=== PATIENT | male | born 1970 | race Caucasian/White ===

== ENCOUNTER 2020-05-16 14:54 | Outpatient (REF) | payer OTHER, SELFPAY ==
[2020-05-21 03:32] LABS: Patient Race White; SARS-CoV-2 RNA Undetected (Undetected); SARS-CoV-2 Specimen Source Nasal
== END 2020-05-16 15:14 ==
LOC: NCHCN 14:54
PROVIDERS: PCP Family Medicine; Visit Provider Nurse Practitioner Family
DX: Z20.828 Contact with and (suspected) exposure to other viral communicable diseases (principal)
CPT/HCPCS: U0003

== ENCOUNTER 2020-09-12 18:13 | Outpatient (REF) | payer OTHER, SELFPAY ==
[2020-09-12 15:46] LABS: Calculated LDL 168 mg/dL (<100); Cholesterol 247 mg/dL (<200); HDL Cholesterol 68 mg/dL (40-60); Triglyceride 58 mg/dL (<150)
[2020-09-12 16:21] LABS: Hemoglobin A1C 5.9 % (<5.7)
== END 2020-09-12 18:14 | disposition home or self-care (01) ==
LOC: NCHCN 18:13
PROVIDERS: PCP Family Medicine; Visit Provider Family Medicine
DX: Z00.00 Encounter for general adult medical examination without abnormal findings (principal); Z13.220 Encounter for screening for lipoid disorders; Z13.1 Encounter for screening for diabetes mellitus; M10.9 Gout, unspecified
CPT/HCPCS: 80061; 83036; 84550

== ENCOUNTER 2021-03-10 17:09 | Outpatient (REF) | payer OTHER, SELFPAY ==
[2021-03-10 15:14] LABS: Uric Acid 6.4 mg/dL (3.5-7.2)
== END 2021-03-10 17:10 | disposition home or self-care (01) ==
LOC: NCHCN 17:09
PROVIDERS: PCP Family Medicine; Visit Provider Family Medicine
DX: M10.9 Gout, unspecified (principal)
CPT/HCPCS: 84550

== ENCOUNTER 2022-04-16 10:20 | Day surgery (SDC) | payer OTHER, SELFPAY ==
--- NOTE | 2022-04-16 07:38 | W.ANESPRE ---
General Info Date of Service Date Performed: 04/16/22 Height: 5 ft 9 in Weight: 78.131 kg Body Mass Index (BMI): 25.4 Surgical Procedure: Operation Date: 04/16/22 12:35 Proposed Procedure Side Surgeon daniel Munguia MD Meds Allergies and Home Medications Allergies Allergy/AdvReac Type Severity Reaction Status Date / Time No Known Allergies Allergy Verified 04/16/22 10:30 Home Medication Medication Instructions Recorded allopurinol 100 mg tablet 100 mg PO DAILY 03/05/21 ibuprofen 200 mg tablet 200 mg PO Q6H PRN 03/05/21 Current Visit Medications: Current Medications Generic Name Dose Route Start Last Admin Trade Name Freq PRN Reason Stop Dose Admin Ringer's Solution 1,000 mls @ 80 mls/hr 04/16/22 06:00 IV 05/15/22 23:59 INFUSION TEVIN IV Miscellaneous Supplies 1 each 04/16/22 06:00 Iv Access IV 05/15/22 23:59 DIRECTED TEVIN Sodium Chloride 0 ml 04/16/22 06:00 Normal Saline Flush 10 Ml Syr IV 05/15/22 23:59 PRN PRN Sodium Chloride 0 ml 04/16/22 06:00 Normal Saline 10 Ml Vial IJ 05/15/22 23:59 DIRECTED PRN Sterile Water 0 ml 04/16/22 06:00 Water,Injection,Sterile 10 Ml Vial IJ 05/15/22 23:59 DIRECTED PRN PFSH Medical History Medical History Gout Inguinal hernia, left Lateral epicondylitis of left elbow Lesion of skin of face Osteoarthritis Prediabetes Snoring Trochanteric bursitis of left hip Surgical History Surgical History Repair of inguinal hernia (~08/2012) Tobacco Smoking/Tobacco Use Status: Never Alcohol Alcohol Intake: current Alcohol intake frequency: a few times a week Alcohol type: beer Substance Use Substance use: Never Substance use type: does not use Vital Signs and Lab Results Vital Signs Most Recent Vital Signs in EMR: Temp Pulse Resp BP Pulse Ox 36.3 C L 78 16 122/96 H 99 04/16/22 10:32 04/16/22 10:32 04/16/22 10:32 04/16/22 10:32 04/16/22 10:32 Lab Results Blood Type / Crossmatch: No Data to Display Complete Blood Count: No Data to Display Complete Metabolic Panel: No Data to Display Liver Function Panel: No Data to Display Coagulation Panel: No Data to Display Cardiac Panel: No Data to Display Arterial Blood Gas: No Data to Display Venous Blood Gas: No Data to Display Pancreas Panel: No Data to Display Thyroid Panel: No Data to Display Infectious Disease: No Data to Display Blood Cultures: No Data to Display Toxicology Panel: No Data to Display Anesthesia Assessment and Plan Anesthesia History Personal History: No History of Anesthesia Complications Family History: No Family History of Anesthesia Complications Exercise Tolerance Exercise Tolerance: Metabolic Equivalents>4 Cardiac & Pulmonary Exam Cardiac Exam: Normal S1/S2 Heart Sounds Pulmonary Exam: Clear Bilateral Breath Sounds Implantable Cardiac Device Does patient have a Pacemaker or an ICD?: No Airway Exam Known Difficult Airway: No Mallampati Class: 1 Mouth Opening: Normal (> 3cm) Thyromental Distance: Greater than 3 cm Neck Range of Motion: Full ROM Neck Circumference: Normal Teeth Condition: Normal Dentition ASA Classification ASA Score: ASA 2 Emergency Case?: No NPO Status NPO Status: NPO Clears >2 hours, Solids >8 hours Anesthesia Plan Resuscitation Status: Full Code Anesthesia Technique: General Anesthesia Airway Planned: Natural Airway Monitors Used: Standard Monitors Preoperative Comments:: 52 yo male for screening colo. Sig PMHx: preDM (A1c 5.9%), gout, Snoring, never smoker, occ EtOH,
--- NOTE | 2022-04-16 07:55 | HPE_ITS ---
Assessment and Plan Assessment and plan (1) Encounter for colorectal cancer screening: Status: Acute Assessment and plan: The patient is here for Colonoscopy pre-op. He has no family history of colon cancer. He has not had any bowel habit changes. -Discussed colonoscopy bowel prep as well as the procedure. Discussed possible complications of the procedure to include bleeding, pain, perforation, missed small lesion/polyp, sore throat, aspiration and adverse reaction to the medications. Questions were answered to patient?s satisfaction. No guarantees were implied or given.? P// Colonoscopy under sedation History of Present Illness Narrative: 51 y/o male with history of gout and prediabtes presents for his first colonoscopy screening pre-op. He denies a family history of colon cancer. He denies any changes in bowel habits including bloody or black tarry stools, abdominal pain, diarrhea or constipation. He denies constitutional symptoms. Denies use of marijuana or any other recreational or illegal drugs. He denies chest pain, palpitations, dyspnea or dyspnea with exertion. He denies prior history or family history of adverse reactions or complications with a nesthesia. The patient denies any history of stroke, VT, seizures, bleeding or clotting disorders. He denies having any implanted metal in his body. Review of Systems All systems reviewed & are unremarkable except as noted in HPI and below PFSH All Active Problems Encounter for colorectal cancer screening (Acute) Medical History Gout Inguinal hernia, left Lateral epicondylitis of left elbow Lesion of skin of face Osteoarthritis Prediabetes Snoring Trochanteric bursitis of left hip Surgical History Repair of inguinal hernia (~08/2012) Social History Smoking/Tobacco Use Status: Never Smoking risk assessment performed?: Yes Alcohol Intake: current Alcohol Intake frequency: a few times a week Alcohol type: beer Drug use: Never Substance use type: does not use Current gender identity: male Do you feel safe at home: Yes Do you feel safe in your relationship?: Yes Meds Allergies and Home Medications Allergies Allergy/AdvReac Type Severity Reaction Status Date / Time No Known Allergies Allergy Verified 04/16/22 10:30 Home Medications Medication Instructions Recorded Confirmed Type allopurinol 100 mg tablet 100 mg PO DAILY 03/05/21 04/16/22 History ibuprofen 200 mg tablet 200 mg PO Q6H PRN 03/05/21 04/15/22 History Exam Const General: comfortable and no acute distress Orientation: alert and oriented x3 HENMT Head: normocephalic and atraumatic Resp Effort & Inspection: normal respiratory effort Auscultation: clear to auscultation bilaterally Cardio Rate: regular rate Rhythm: regular rhythm
--- NOTE | 2022-04-16 07:57 | W.COLOREPORT ---
Colonoscopy Report Date of procedure: 04/16/22 Pre-op diagnosis general: colon Cancer screening Post-op diagnosis procedure note: same Procedure: Colonoscopy Surgeon: Savana Munguia Anesthesia Type: General:No Airway Estimated blood loss (mL): 0 Pathology: none sent Complications: None Disposition: same day Indications: The patient is here for Colonoscopy pre-op. He has no family history of colon cancer. He has not had any bowel habit changes. -Discussed colonoscopy bowel prep as well as the procedure. Discussed possible complications of the procedure to include bleeding, pain, perforation, missed small lesion/polyp, sore throat, aspiration and adverse reaction to the medications. Questions were answered to patient?s satisfaction. No guarantees were implied or given.? Prep: Miralax/Dulcolax Procedure Start Time: 11:50 Procedure End Time: 12:06 Retraction Time: 6 minutes Findings: Normal colon Procedure Description: After informed consent was obtained the patient was taken to the procedure room and placed in a left decubitous position. Monitors were applied and a time out was done. The patients name, date of , procedure, allergies to medications and metal in their body was reviewed. The patient was then sedated. Once sedated and comfortable a rectal exam was done. External exam was normal. Internal exam revealed a normal sphincter tone and no palpable masses. The prostate felt smooth. The scope was then introduced and retro-flexed. No internal hemorrhoids, polyps or masses were identified on retro-flexion. The scope was then advanced to the cecum without difficulty. The ileocecal vlave and appendiceal orifice were identified. The prep was adequate. The scope was then slowly retracted over 6 minutes back into the rectum. There were no polyps and there was no diverticulosis noted. The scope was removed and the patient was woken up and taken back to Same day surgery in stable condition. The patient tolerated the procedure well and there were no immediate complications. Follow up: The patient should follow up in 10 years unless they develop changes in bowel habits or other new gastrointestinal complaints.
--- NOTE | 2022-04-16 07:58 | W.PM.DSUDISC ---
Discharge Plan Disposition Patient Disposition: HOME Condition: Good Discharge Details Reason For Visit: colonoscopy Attending Provider: Savana Munguia Primary Care Provider: Jeanette Bernard Home Meds and New Rx's Prescriptions: No Action ibuprofen 200 mg tablet 200 mg PO Q6H PRN allopurinol 100 mg tablet 100 mg PO DAILY Discharge Instructions Additional Instructions: Findings: Normal Follow up: 10 years Please call if you develop: fevers >101.5 Nausea or Vomiting Abdominal pain that is not transient Rectal bleeding that is more then a tbsp A hard abdomen and inability to pass gas DAY SURGERY UNIT POST ENDOSCOPY INSTRUCTIONS Instructions for everyone who is given Anesthesia: For your safety, please do the following for the next 24 Hours: a. Do not drive or operate dangerous equipment b. Do not drink alcohol beverages or use any recreational drugs for the first 24 hours or while taking pain medications. The medications in your body may have a reaction that can be dangerous. c. Do not make any important decisions or sign any important papers 1. Generally there are no restrictions on your activity after a day or so has gone by, but you may feel a bit fatigued for a few days. 2. After you arrive home you may have a light meal and return to a normal diet as you can tolerate it without feeling sick to your stomach. 3. After surgery, you may feel pain or discomfort. This should be only transient, but if it persists please contact your doctor. 4. If there are any questions regarding the findings of your procedure, please feel free to contact your doctor. 6. If you are unable to contact your doctor with a problem, contact the hospital at [phone]. 7. Continue all your regular medications unless directed otherwise. I understand the above instructions and have no questions. Signature of Patient or Responsible Adult Escort Date/Time Name of Responsible Adult Escort Signature of Nurse Date/Time Activity:: Activity as Tolerated Diet:: As Tolerated Discharge Orders Discharge Orders: Discharge Order (Routine); Ordered 04/16/22 Ordered By: Savana Munguia DS: Diagnosis Discharge Diagnosis (1) Encounter for colorectal cancer screening: Status: Acute
[2022-04-16 10:32] VITALS: BP 122/96; PULSE 78; RESP 16; TEMP 36.3; O2SAT 99
[2022-04-16] MEDS: Lactated Ringers 1,000 ML 80 ML IV (11:12)
[2022-04-16 11:30] VITALS: BMI 25.4
[2022-04-16 12:09] VITALS: BP 122/79; PULSE 83; RESP 16; TEMP 36.4; O2SAT 100
--- NOTE | 2022-04-16 12:16 | W.ANESPOSTOP ---
Postoperative Evaluation Date, Time and Location Date Performed: 04/16/22 Time Performed: 12:16 Patient Location: Day Surgery Unit Vital Signs Most Recent Imported Vital Signs: Most Recent Vital Signs Temp Pulse Resp BP Pulse Ox 36.4 C L 83 16 122/79 100 04/16/22 12:09 04/16/22 12:09 04/16/22 12:09 04/16/22 12:09 04/16/22 12:09 Pain Score Most Recent Pain Score: Most Recent Pain Score Pain Level 0 04/16/22 12:09 Assessment Mental Status: Awake (Alert & Oriented to Patient Baseline) Airway and Respiratory Function: Patent airway with normal (patient baseline) respiratory exam Cardiovascular Function: Hemodynamically Stable Hydration Status: Adequately Hydrated Nausea & Vomiting: No Nausea or Vomiting Pain: Pt. Denies Any Pain Peripheral Nerve Block: Patient did not receive a nerve block
[2022-04-16 12:38] VITALS: BP 135/94; PULSE 70; RESP 18; TEMP 36.4; O2SAT 100
== END 2022-04-16 12:47 | disposition home or self-care (01) ==
PROVIDERS: PCP Family Medicine; Visit Provider Surgery
PROC: 0DJD8ZZ Inspection of Lower Intestinal Tract, Via Natural or Artificial Opening Endoscopic (ICD-10-PCS; CPT 45378; principal; 2022-04-16 11:45)
DX: Z12.11 Encounter for screening for malignant neoplasm of colon (principal); R73.03 Prediabetes
CPT/HCPCS: 45378

== ENCOUNTER 2022-12-29 00:56 | Outpatient (CLI) | payer OTHER, SELFPAY ==
--- NOTE | 2022-12-29 07:00 | DI.CT_ITS ---
Exam(s) CT ABDOMEN PELVIS W EXAM: CT ABDOMEN PELVIS W CLINICAL HISTORY: pain suprapubic/inguinal region,Neg on exam,r10.32,r39.89. TECHNIQUE: Imaging Protocol: Axial computed tomography images with coronal and sagittal reformatted images were created and reviewed CONTRAST MATERIAL: Intravenous: Omnipaque-350 100cc Oral: YES. ORAL CONTRAST WAS ADMINISTERED FOR BOWEL OPACIFICATION COMPARISON: No exams were available for comparison FINDINGS: VISUALIZED LUNG BASES: No nodules nor pleural effusions evident. ABDOMEN: There is no ascites. LIVER: There are no focal hepatic lesions evident. No dilated intrahepatic ducts. GALLBLADDER/BILIARY: No obvious gallbladder pathology. CBD is not dilated. PANCREAS: No evidence of pancreatic mass nor dilatation of the pancreatic duct. SPLEEN: Spleen is not enlarged. No obvious intrasplenic lesions. Splenic and portal veins are paten t. ADRENALS: There are no significant adrenal masses. KIDNEYS:There is a benign cyst in the lateral cortex of the left kidney measuring 1.3 x 1.2 cm. Does not require further workup. No solid renal nodules. No calculi nor hydronephrosis. ABDOMINAL AORTA: Abdominal aorta is not enlarged. LYMPH NODES:There is no retroperitoneal nor paraaortic adenopathy. ABDOMINAL WALL: No evidence of significant anterior abdominal wall nor inguinal hernia. GI: There is no evidence of bowel obstruction, free air, nor abscess. PELVIS: GI: No evidence of appendicitis.No evidence of sigmoid diverticulitis. LYMPH NODES: There is no intrapelvic nor inguinal adenopathy. REPRODUCTIVE: Prostate size upper normal. Seminal vesicles unremarkable. URINARY BLADDER: There is uniform thickening of the urinary bladder wall. Probably related to chroni c cystitis. The bladder is not distended. There are no bladder diverticuli evident. OSSEOUS: No fractures and no significant osseous lesions. IMPRESSION: 1. There is uniform thickening of the urinary bladder wall, consistent with probable cystitis. There is no evidence of emphysematous cystitis. Prostate size upper normal. RADIATION DOSE DELIVERED: 1,137.61mGy.cm Total DLP DATA REPOSITORY: All CT scans at this facility are submitted to the National Radiology Data Registry (NRDR) Dose Index Registry (DIR) with the [employer] ([employer]). RADIATION OPTIMIZATION: All CT scans at this facility use at least one of these dose optimization te chniques: automated exposure control; mA and/or kV adjustment per patient size (includes targeted exa ms where dose is matched to clinical indication); or iterative reconstruction.
[2022-12-29] MEDS: Barium Sulfate 2% W/V-Berry Smoothie 450 ML BTL PO (07:17)
[2022-12-29 07:31] LABS: CREATININE 1.2 mg/dL (0.70-1.30); Estimated GFR 72.31 (mL/min/1.73m2)
[2022-12-29] MEDS: Normal Saline - Diluent 50 ML VIAL IJ (10:39)
[2022-12-29] MEDS: Omnipaque 350 MG/ML 500 ML BTL-Imaging package 100 ML IJ (10:40)
== END 2022-12-29 01:16 ==
LOC: DI 00:56
PROVIDERS: PCP Family Medicine; Visit Provider Surgery
DX: R10.32 Left lower quadrant pain (principal); R39.89 Other symptoms and signs involving the genitourinary system
CPT/HCPCS: 74177; 82565

== ENCOUNTER 2023-02-10 14:09 | Outpatient (REF) | payer OTHER, SELFPAY ==
[2023-02-10 15:23] LABS: Bilirubin Negative (Negative); Blood Negative (Negative); Clarity Clear (Clear); Glucose Negative (Negative); Ketones Negative (Negative); Leukocyte Esterase Negative (Negative); Nitrite Negative (Negative); Urobilinogen 0.2 mg/dL (Up to 0.2)
== END 2023-02-10 14:10 | disposition home or self-care (01) ==
LOC: LBN 14:09
PROVIDERS: PCP Family Medicine; Visit Provider Surgery
DX: N32.89 Other specified disorders of bladder (principal); R93.89 Abnormal findings on diagnostic imaging of other specified body structures
CPT/HCPCS: 81003

== ENCOUNTER 2023-04-09 20:44 | Outpatient (REF) | payer OTHER, SELFPAY ==
[2023-04-09 18:53] LABS: HCT 46.3 % (40.0-50.0); HGB 15.7 g/dL (13.5-17.5); MCH 30.4 pg (27.0-33.0); MCHC 33.9 % (32.0-36.0); MCV 90 fL (80-95); MPV 10.5 fL (8.0-11.0); Platelet Count 267 10^3/uL (130-400); RBC 5.17 10^6/uL (4.36-5.78); RDW 11.6 % (11.8-14.1); RDW-SD 38.1 fL; WBC 4.67 10^3/uL (4.4-10.8)
[2023-04-09 19:14] LABS: ALT 23 U/L (16-63); AST 17 U/L (15-37); Albumin 4.3 g/dL (3.4-5.0); Alkaline Phosphatase 92 U/L (46-116); Anion Gap 10.1 mmol/L (3-11); BUN 16 mg/dL (7-18); Bilirubin, Total 0.4 mg/dL (0.2-1.0); CO2 28.9 mmol/L (21.0-32.0); CREATININE 1.1 mg/dL (0.70-1.30); Calcium 9.7 mg/dL (8.5-10.1); Chloride 101 mmol/L (98-107); Estimated GFR 79.77 (mL/min/1.73m2); Glucose 91 mg/dL (74-106); Potassium 4.1 mmol/L (3.5-5.1); Sodium 140 mmol/L (136-145); Total Protein 8.1 g/dL (6.4-8.2); Uric Acid 5.6 mg/dL (3.5-7.2)
[2023-04-09 20:07] LABS: Hemoglobin A1C 5.8 % (<5.7)
[2023-04-12 10:37] LABS: HIV-1/2 Ag & Ab Screen Negative (Negative)
[2023-04-12 10:48] LABS: Hepatitis C Ab w Rflx HCV PCR Negative (Negative)
[2023-04-12 11:03] LABS: Varicella IgG Antibody Positive (See Note)
== END 2023-04-09 20:45 | disposition home or self-care (01) ==
LOC: NCHCN 20:44
PROVIDERS: PCP Family Medicine; Visit Provider Family Medicine
DX: Z00.00 Encounter for general adult medical examination without abnormal findings (principal); R53.83 Other fatigue; R73.03 Prediabetes; M10.9 Gout, unspecified; Z01.84 Encounter for antibody response examination; Z11.4 Encounter for screening for human immunodeficiency virus [HIV]; Z11.59 Encounter for screening for other viral diseases
CPT/HCPCS: 80053; 85027; 86787; 86803; 87389; 83036; 84443; 84550

== ENCOUNTER 2025-07-02 18:14 | Outpatient (REF) | payer OTHER, SELFPAY ==
[2025-07-02 19:43] LABS: HCT 44.4 % (40.0-50.0); HGB 14.7 g/dL (13.5-17.5); MCH 29.7 pg (27.0-33.0); MCHC 33.1 % (32.0-36.0); MCV 90 fL (80-95); MPV 10.4 fL (8.0-11.0); Platelet Count 270 10^3/uL (130-400); RBC 4.95 10^6/uL (4.36-5.78); RDW 11.9 % (11.8-14.1); RDW-SD 38.7 fL; WBC 5.43 10^3/uL (4.4-10.8)
[2025-07-02 20:04] LABS: Hemoglobin A1C 5.5 % (<5.7)
[2025-07-02 20:05] LABS: ALT 20 U/L (10-49); AST 23 U/L (<34); Albumin 4.4 g/dL (3.2-5.0); Alkaline Phosphatase 85 U/L (46-116); Anion Gap 8.7 mmol/L (3-11); BUN 20 mg/dL (9-23); Bilirubin, Total 0.4 mg/dL (0.2-1.2); CO2 29.3 mmol/L (20.0-31.0); Calcium 9.7 mg/dL (8.3-10.6); Chloride 104 mmol/L (98-107); Cholesterol 242 mg/dL (<200); Glucose 89 mg/dL (74-106); HDL Cholesterol 64 mg/dL (>40); Potassium 4.1 mmol/L (3.5-5.1); Sodium 142 mmol/L (136-145); Total Protein 7.4 g/dL (5.7-8.2)
== END 2025-07-02 18:15 | disposition home or self-care (01) ==
LOC: NCHCN 18:14
PROVIDERS: PCP Family Medicine; Visit Provider Family Medicine
DX: I10 Essential (primary) hypertension (principal); R73.03 Prediabetes; Z13.220 Encounter for screening for lipoid disorders
CPT/HCPCS: 80053; 80061; 85027; 82043; 82570; 83036